=== PATIENT | female | born 1935 | race Asian ===

== ENCOUNTER 2019-03-11 10:12 | Day surgery (SDC) | payer OTHER ==
[2019-03-10 16:31] VITALS: BMI 23.4
[2019-03-11 13:41] VITALS: PULSE 62
[2019-03-11 14:50] VITALS: BP 144/68; TEMP 97.8
--- NOTE | 2019-03-15 14:24 | PATH ---
Surgical Pathology Report Patient Name: RADHA SUNSHINE [facility]. Rec. #: [id number] /Age/Gender: 1935 (Age: 84) / F Account: [id number] Location: [facility]-ENDOSCOPY Taken: 03/11/2019 Received: 03/12/2019 Reported: 03/15/2019 Physicians: Jorge Patel D.O. Specimen(s) Received SIGMOID POLYP Clinical History History of colon cancer Postoperative diagnosis: Colon polyp, surgical anastomosis, hemorrhoids Final Diagnosis SIGMOID POLYP, BIOPSY: TUBULAR ADENOMA. Electronically Signed Annamarie Dumont M.D. Gross Description Received in formalin, labeled "sigmoid polyp biopsy" are 2 perez, irregular portions of soft tissue measuring 0.2 and 0.6 cm. in greatest dimension. The specimens are submitted in toto in one cassette. /03/12/201903/12/2019
== END 2019-03-11 14:20 | disposition home or self-care (01) ==
LOC: JASU-ENDO 10:12
PROVIDERS: ATTEND Internal Medicine Gastroenterology
PROC: 0DBN8ZX Excision of Sigmoid Colon, Via Natural or Artificial Opening Endoscopic, Diagnostic (ICD-10-PCS; principal; 2019-03-11 11:15)
DX: Z12.11 Encounter for screening for malignant neoplasm of colon (principal); Z85.038 Personal history of other malignant neoplasm of large intestine; D12.5 Benign neoplasm of sigmoid colon; K64.8 Other hemorrhoids; Z98.0 Intestinal bypass and anastomosis status
CPT/HCPCS: 88305-TC

== ENCOUNTER 2023-04-06 08:23 | Emergency (ER) | payer OTHER ==
[2023-04-06 08:49] VITALS: BP 162/75; PULSE 75; RESP 18; TEMP 98.1; BMI 29.2
[2023-04-06 09:34] LABS: HEMATOCRIT 46.3 % (32.4-45.2); HEMOGLOBIN 15.3 G/dL (10.7-15.3); MCH 30.2 pg (25.7-33.7); MCHC 32.9 g/dl (32.0-36.0); MEAN CELL VOLUME 91.7 fl (80-96); PLATELET COUNT 232.2 10^3/uL (134-434); RBC 5.05 10^6/uL (3.60-5.2); RDW 14.6 % (11.6-15.6); WHITE BLOOD COUNT 7.5 10^3/uL (4.0-10.8)
[2023-04-06 09:36] LABS: ALBUMIN 4.5 g/dl (3.4-5.0); BILIRUBIN,TOTAL 0.9 mg/dl (0.2-1); CREATININE 0.7 mg/dl (0.55-1.3); POTASSIUM 3.9 mmol/L (3.5-5.1); TOT PROT 7.2 g/dl (6.4-8.2)
[2023-04-06 09:53] LABS: EPITHELIAL CELLS FEW /hpf
[2023-04-06 11:07] LABS: PLATELET ESTIMATE ADEQUATE
== END 2023-04-06 11:45 | disposition home or self-care (01) ==
LOC: FER 08:23
DX: R53.1 Weakness (principal); T50.905A Adverse effect of unspecified drugs, medicaments and biological substances, initial encounter; Z20.822 Contact with and (suspected) exposure to COVID-19
CPT/HCPCS: 0241U-QW; 36415; 70450-TC; 71045-TC-FY; 80053; 81003; 81015; 84484; 85027; 87086; 93005; 99285-25